=== PATIENT | male | born 1985 | race Hispanic/Latino ===

== ENCOUNTER 2017-06-05 20:06 | Observation (INO) | payer MEDICAID ==
[2017-06-05 21:15] LABS: BASO # 0.03 K/mm3 (0.0-2.0); BASO % 0.3 % (0.0-3.0); EOS # 0.1 (0.0-0.7); EOS % 1.1 % (1.5-5.0); GRAN # 7.43 (1.4-6.5); GRAN % 74.4 % (50.0-68.0); HEMOGLOBIN 13.9 g/dL (14.0-18.0); LYMPH # 1.5 (1.2-3.4); LYMPH % 14.7 % (22.0-35.0); MEAN CELL VOLUME 90.8 fl (80.0-105.0); MEAN CORPUSCULAR HEMOGLOBIN 30.3 pg (25.0-35.0); MEAN CORPUSCULAR HGB CONC 33.4 g/dl (31.0-37.0); MONO % 9.5 % (1.0-6.0); RBC 4.58 10^6/uL (3.5-6.1); RED CELL DISTRIBUTION WIDTH 13.4 % (11.5-14.5)
[2017-06-05 21:26] LABS: ALB/GLOB RATIO 1.1 (1.1-1.8); ALBUMIN 3.8 g/dL (3.0-4.8); CALCIUM 9.7 mg/dL (8.4-10.5)
[2017-06-05 21:31] LABS: ACETAMINOPHEN < 10.0 ug/ml (10.0-20.0); SALICYLATE < 1 mg/dL (2.0-20.0)
[2017-06-06 00:57] LABS: PH,URINE 6.5 (4.7-8.0); URINE BILIRUBIN NEGATIVE (NEGATIVE); URINE BLOOD LARGE (NEGATIVE); URINE GLUCOSE (UA) NEGATIVE (NEGATIVE); URINE LEUKOCYTE ESTERASE NEGATIVE Leu/uL (NEGATIVE); URINE PROTEIN >=300 mg/dL (<30 mg/dL); URINE UROBILINOGEN 0.2 E.U./dL (<1 E.U./dL)
[2017-06-06 00:58] LABS: URINE APPEARANCE CLEAR (CLEAR); URINE COLOR LIGHT YELLOW (YELLOW)
[2017-06-06 01:13] LABS: BARBITURATES, UR NEGATIVE (NEGATIVE); BENZODIAZEPINES, UR NEGATIVE (NEGATIVE); OPIATES, UR NEGATIVE (NEGATIVE); PHENCYCLIDINE, UR POSITIVE (NEGATIVE)
[2017-06-06 01:19] LABS: URINE RBC 20 - 25 /hpf (0-2)
[2017-06-06 01:20] LABS: URINE BACTERIA MOD (NEG); URINE HYALINE CAST 0 - 2 /hpf
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
[2017-06-06] MEDS ORDERED: Sodium Chloride 0.9% 1,000 ML IV STA (01:34)
[2017-06-06] MEDS ORDERED: TDAP Vaccine 0.5 mL Syr IM ONE (01:42)
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
[2017-06-06] MEDS ORDERED: Sodium Chloride 0.9% 1,000 ML IV SCH ×2 (03:30→06:07)
[2017-06-06 04:58] VITALS: BMI 46.3
[2017-06-06 07:07] LABS: BASO # 0.03 K/mm3 (0.0-2.0); BASO % 0.4 % (0.0-3.0); EOS # 0.3 (0.0-0.7); EOS % 3.8 % (1.5-5.0); GRAN # 3.69 (1.4-6.5); HEMOGLOBIN 12.3 g/dL (14.0-18.0); LYMPH # 2.5 (1.2-3.4); LYMPH % 34.7 % (22.0-35.0); MEAN CELL VOLUME 91.4 fl (80.0-105.0); MEAN CORPUSCULAR HEMOGLOBIN 29.5 pg (25.0-35.0); MEAN CORPUSCULAR HGB CONC 32.3 g/dl (31.0-37.0); MEAN PLATELET VOLUME 12.2 fl (7.0-11.0); MONO # 0.7 (0.1-0.6); MONO % 9.1 % (1.0-6.0); RBC 4.17 10^6/uL (3.5-6.1); RED CELL DISTRIBUTION WIDTH 13.3 % (11.5-14.5); WHITE BLOOD COUNT 7.1 10^3/ul (4.5-11.0)
[2017-06-06 07:41] LABS: ALBUMIN 3.2 g/dL (3.0-4.8); CALCIUM 8.8 mg/dL (8.4-10.5)
--- NOTE | 2017-06-06 14:47 | US ---
PROCEDURE: Ultrasound of the Kidneys HISTORY: HAMMAD COMPARISON: None available. TECHNIQUE: Sonogram of the kidneys. FINDINGS: RIGHT KIDNEY: Measures: 11.5 cm. Diffusely increased cortical echogenicity. Normal cortical thickness. No stone, solid mass lesion or hydronephrosis visualized. LEFT KIDNEY: Measures: 11.2 cm. Diffusely increased cortical echogenicity. Normal cortical thickness. Simple cysts mid left kidney, 1.2 x 1.1 x 1.1 cm. No solid mass. No calculus or hydronephrosis. OTHER FINDINGS: None. IMPRESSION: Diffusely increased renal cortical echogenicity bilaterally consistent with medical renal disease. Incidental 1.2 cm mid left renal cortical cyst.
[2017-06-06] MEDS: Pantoprazole 20 mg EC Tab PO SCH (16:17)
[2017-06-06] MEDS: NIFEdipine 60 mg ER Tab PO SCH (16:19)
[2017-06-06 21:37] LABS: COMPLEMENT C4 41.5 mg/dL (14.0-44.0)
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
[2017-06-07] MEDS: Pantoprazole 20 mg EC Tab PO SCH ×2 (06:29→16:01)
[2017-06-07] MEDS: NIFEdipine 60 mg ER Tab PO SCH (09:48)
[2017-06-07 12:23] LABS: CREATININE,RANDOM URINE 108 mg/dL
[2017-06-07 12:44] LABS: TOTAL PROTEIN,RANDOM URINE 969 mg/L
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
--- NOTE | 2017-06-07 18:51 | CP.PCM.PN ---
Subjective - Date & Time of Evaluation Date of Evaluation: 06/07/17 Time of Evaluation: 17:45 - Subjective Subjective: Patient reportedly very agitated yesterday; pulled out IV line and refusing blood draws; otherwise, tolerating diet; Objective - Vital Signs/Intake and Output Vital Signs (last 24 hours): Temp Pulse Resp BP Pulse Ox 98.5 F 20 L 89 H 117/61 97 06/07/17 17:06 06/07/17 17:06 06/07/17 17:06 06/07/17 17:06 06/07/17 17:06 Intake and Output: 06/07/17 06/07/17 06:59 18:59 Intake Total 420 1400 Output Total 400 Balance 420 1000 - Medications Medications: Current Medications Acetaminophen (Tylenol 325mg Tab) 650 mg PO Q6H PRN PRN Reason: Pain, moderate (4-7) Last Admin: 06/07/17 16:00 Dose: 650 mg Hydralazine HCl (Apresoline) 10 mg PO Q6H PRN PRN Reason: Systolic Blood Pressure Last Admin: 06/06/17 21:54 Dose: 10 mg Nifedipine (Procardia Xl) 60 mg PO DAILY [facility] Last Admin: 06/07/17 09:48 Dose: 60 mg Pantoprazole Sodium (Protonix Ec Tab) 20 mg PO 0600,1600 [facility] Last Admin: 06/07/17 16:01 Dose: 20 mg Quetiapine Fumarate (Seroquel) 50 mg PO HS [facility]DA PRN Reason: Protocol Last Admin: 06/06/17 21:52 Dose: 50 mg Quetiapine Fumarate (Seroquel) 50 mg PO Q6 PRN; Protocol PRN Reason: Agitation Last Admin: 06/07/17 16:50 Dose: 50 mg Quetiapine Fumarate (Seroquel) 25 mg PO DAILY [facility] PRN Reason: Protocol Last Admin: 06/07/17 09:48 Dose: 25 mg - Labs Labs: 06/06/17 06:30 06/06/17 06:30 - Constitutional Appears: Non-toxic, No Acute Distress - Eye Exam Eye Exam: absent: Scleral icterus - ENT Exam ENT Exam: Mucous Membranes Moist - Respiratory Exam Respiratory Exam: Clear to Ausculation Bilateral. absent: Respiratory Distress - Cardiovascular Exam Cardiovascular Exam: RRR, +S1, +S2 - GI/Abdominal Exam GI & Abdominal Exam: Soft. absent: Distended, Tenderness - Exam Exam: absent: Bladder Distension - Extremities Exam Additional comments: no leg edema; - Neurological Exam Neurological Exam: Alert, Awake - Psychiatric Exam Psychiatric exam: absent: Agitated - Skin Skin Exam: Warm. absent: Cyanosis Assessment and Plan (1) CKD (chronic kidney disease) Assessment & Plan: Advanced CKD indicated by increased echogenicity on renal US; unclear if there is any acute component, need to obtain previous records; patient with ~1g proteinuria by urine prot/creat ratio; ideally needs renal biopsy to look for any possible treatable cause and also for prognostic significance with regard to his [place] kidney function as well as future transplant; however, given patient's psychiatric condition, will need to discuss with family/caregivers; -obtaining serologic workup (when patient agrees to labs) -checking PTH and 25-OH vit D levels for evidence of CKD mineral bone disorder Status: Chronic (2) Hypertensive CKD (chronic kidney disease) Assessment & Plan: BP overly-controlled on nifedipine XL 60 mg, will decrease to 30 mg; checking whitney/renin level; Status: Acute (3) Proteinuria Assessment & Plan: See above; obtaining 24 hr urine collection; Status: Acute
[2017-06-08] MEDS: Pantoprazole 20 mg EC Tab PO SCH ×2 (05:44→17:33)
--- NOTE | 2017-06-08 10:20 | CON ---
DATE: 06/07/2017 Patient is a single 31-year-old white male with a psychiatric history of depression, a long history of PCP use, prior psychiatric hospitalizations related to the PCP use as recently as a week ago at [facility] No current outpatient treatment, who is brought in by EMS to the ER for psychiatric evaluation. Patient was admitted to medical unit and Psychiatry was called for consultation and this provider met with patient yesterday and patient was quite lucid, oriented x3, and reported having a history of depression and current depression is related to either PCP use. Patient reported that he restarted Seroquel 50 mg at bedtime to help with his impulse control and mood and sleep. Patient was not hallucinating, overtly paranoid, suicidal or homicidal at the time of meeting; however, review of staff report shows, the patient has been more confused, disoriented and paranoid, unpredictable on the medical unit. Patient had been and has been difficult with procedures and requests for cooperation. I met with the patient at the bedside today and again he recalled me from my visit yesterday and he remains oriented x3 and indicates that he has memory of his behaviors on the unit. Patient reports that he was hallucinating off and on until yesterday and his hallucinations were at times stressful. Again, patient reports that the hallucinations are likely secondary to his PCP, which he does daily. Patient is a little guarded. He is preoccupied; however, he is calm, not demanding, and does not appear to be actively hallucinating; however, this provider cannot rule out his presentation will change as delirium can fluctuate. Presently, he is going to stay at the hospital and wants to be treated; however, it is unclear how reliable this commitment is that patient refused labs later on in the morning. Due to delirium, patient does not have medical capacity to sign out against medical advice at this time. Vital signs and labs were reviewed by this provider. Relevant psychiatric medications, patient is on Seroquel 50 mg at bedtime. 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 Mood disorder, not otherwise specified; rule out bipolar, rule out major depression. RECOMMENDATIONS: At this time, we will start Seroquel 25 mg b.i.d. and 50 mg at bedtime with p.r.n. of 50 mg p.o. every 6 and monitor patient's mental status and behavior in the unit. He is not psychiatrically cleared at this time due to mental status related to delirium. Psychiatry will continue to follow up with him on 06/08/2017; specifically Dr. Watson will be seeing patient. Alban Solis MD : 06/07/2017 12:12:57
[2017-06-08] MEDS: NIFEdipine 60 mg ER Tab PO SCH (10:46)
[2017-06-08] MEDS ORDERED: OLANZapine 5 mg Disintegrating Tab PO STA (14:12)
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
[2017-06-08 18:53] VITALS: BP 127/75; PULSE 83; RESP 18; TEMP 98.5; O2SAT 98
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
--- NOTE | 2017-06-08 19:20 | CP.PCM.PN ---
Subjective - Date & Time of Evaluation Date of Evaluation: 06/08/17 Time of Evaluation: 12:00 - Subjective Subjective: Patient continues to refuse IV or blood draws; denies sob, nausea/vomiting; Objective - Vital Signs/Intake and Output Vital Signs (last 24 hours): Temp Pulse Resp BP Pulse Ox 98.5 F 83 18 127/75 98 06/08/17 18:00 06/08/17 18:00 06/08/17 18:00 06/08/17 18:00 06/08/17 18:00 - Medications Medications: Current Medications Acetaminophen (Tylenol 325mg Tab) 650 mg PO Q6H PRN PRN Reason: Pain, moderate (4-7) Last Admin: 06/07/17 16:00 Dose: 650 mg Hydralazine HCl (Apresoline) 10 mg PO Q6H PRN PRN Reason: Systolic Blood Pressure Last Admin: 06/06/17 21:54 Dose: 10 mg Lorazepam (Ativan) 2 mg IM Q6H PRN; Protocol PRN Reason: agitation/anxiety Lorazepam (Ativan) 2 mg PO BID [facility] PRN Reason: Protocol Last Admin: 06/08/17 18:46 Dose: 2 mg Nifedipine (Procardia Xl) 60 mg PO DAILY [facility] Last Admin: 06/08/17 10:46 Dose: 60 mg Olanzapine (Zyprexa Zydis) 5 mg PO AMHS [facility] PRN Reason: Protocol Pantoprazole Sodium (Protonix Ec Tab) 20 mg PO 0600,1600 [facility] Last Admin: 06/08/17 17:33 Dose: Not Given Ziprasidone (Geodon Inj) 20 mg IM TID PRN; Protocol PRN Reason: severe agitation Zolpidem Tartrate (Ambien) 5 mg PO HS [facility] PRN Reason: Protocol - Constitutional Appears: Non-toxic, No Acute Distress - Eye Exam Eye Exam: absent: Scleral icterus - ENT Exam ENT Exam: Mucous Membranes Moist - Respiratory Exam Respiratory Exam: Clear to Ausculation Bilateral. absent: Respiratory Distress - Cardiovascular Exam Cardiovascular Exam: RRR, +S1, +S2 - Extremities Exam Additional comments: no leg edema; - Neurological Exam Neurological Exam: Alert, Awake - Psychiatric Exam Psychiatric exam: absent: Agitated, Normal Affect - Skin Skin Exam: Warm. absent: Cyanosis Assessment and Plan (1) CKD (chronic kidney disease) Assessment & Plan: Advanced CKD; patient continues to refuse further workup despite being counseled on possible progression to ESRD status; discussed with primary attending, they will attempt to have patient transferred to inpatient psych, can pursue further renal workup once more psychiatrically stable; Status: Chronic (2) Hypertensive CKD (chronic kidney disease) Assessment & Plan: BP too tightly controlled, decreasing nifedipine XL to 30 mg for now; Status: Acute (3) Proteinuria Assessment & Plan: Awaiting 24 hr urine collection results but appears to be inadequate collection ; ideally needs RANJITH blockade but will not start as patient refuses blood work and we need to monitor renal function/K level; Status: Acute
[2017-06-08] MEDS: OLANZapine 5 mg Disintegrating Tab PO SCH (21:14)
[2017-06-09 06:30] LABS: BASO # 0.01 K/mm3 (0.0-2.0); BASO % 0.2 % (0.0-3.0); EOS # 0.3 (0.0-0.7); EOS % 4.5 % (1.5-5.0); GRAN # 2.58 (1.4-6.5); GRAN % 41.3 % (50.0-68.0); HEMOGLOBIN 12.8 g/dL (14.0-18.0); LYMPH # 2.7 (1.2-3.4); MEAN CELL VOLUME 91.4 fl (80.0-105.0); MEAN CORPUSCULAR HEMOGLOBIN 29.6 pg (25.0-35.0); MEAN CORPUSCULAR HGB CONC 32.4 g/dl (31.0-37.0); MEAN PLATELET VOLUME 12.2 fl (7.0-11.0); MONO # 0.7 (0.1-0.6); RBC 4.32 10^6/uL (3.5-6.1); WHITE BLOOD COUNT 6.3 10^3/ul (4.5-11.0)
[2017-06-09] MEDS ORDERED: NIFEdipine 30 mg ER Tab PO SCH (06:37)
[2017-06-09] MEDS: Pantoprazole 20 mg EC Tab PO SCH (07:02)
[2017-06-09] MEDS: OLANZapine 5 mg Disintegrating Tab PO SCH (09:55)
--- NOTE | 2017-06-09 14:22 | CP.PCM.PCO ---
Physician Communication Note - Physician Communication Note Physician Communication Note: pt was screened by [facility], but was not accepted, was d/c AMA
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
== END 2017-06-09 11:30 | disposition left against medical advice (07) ==
LOC: ED 20:06 → ERH 06-06 02:04 → OBSVTOIN 06-06 02:04 → INTOOBSV 06-06 02:04 → UNDOADMOB 06-06 02:04 → ERH 06-06 02:28 → 3RNO 06-06 03:24 → INTOOBSV 06-08 17:11 → OBSVTOIN 06-08 17:11
PROVIDERS: ADMIT Hospitalist; ATTEND Internal Medicine
DX: N17.9 Acute kidney failure, unspecified (principal); E87.5 Hyperkalemia; F16.90 Hallucinogen use, unspecified, uncomplicated; I12.9 Hypertensive chronic kidney disease with stage 1 through stage 4 chronic kidney disease, or unspecified chronic kidney disease; N18.9 Chronic kidney disease, unspecified; S01.511A Laceration without foreign body of lip, initial encounter; Y04.0XXA Assault by unarmed brawl or fight, initial encounter; E78.5 Hyperlipidemia, unspecified; F12.159 Cannabis abuse with psychotic disorder, unspecified; Z23 Encounter for immunization; Z53.20 Procedure and treatment not carried out because of patient's decision for unspecified reasons; Z79.899 Other long term (current) drug therapy; Z87.891 Personal history of nicotine dependence; Z91.19 Patient's noncompliance with other medical treatment and regimen; N28.1 Cyst of kidney, acquired; R40.2412 Glasgow coma scale score 13-15, at arrival to emergency department
CPT/HCPCS: 36415; 76770; 80053; 80061; 80320; 80324; 80329; 80345; 80346; 80349; 80353; 80358; 80361; 81001; 82043; 82550; 82570; 83036; 83874; 83992; 84156; 84300; 85025; 86160; 86592; 87086; 87340; 90471; 90715; 96360; 99285; G0378; J7040